=== PATIENT | male | born 1955 | race African-American/Black ===

== ENCOUNTER 2023-12-09 06:30 | Emergency (ER) | payer MEDICARE, MEDICAID ==
[~2023-12-09] VITALS: Ht 172.7 cm; Wt 73.0 kg
[2023-12-09 06:45] VITALS: BP 0/0; PULSE 0; RESP 14; O2SAT 100
[2023-12-09] MEDS ORDERED: CALCIUM CHLORIDE 1GM/10ML SYR IV ONE (06:46)
[2023-12-09] MEDS ORDERED: DEXTROSE 50% WATER 50ML SYRINGE IV ONE (06:49)
[2023-12-09] MEDS ORDERED: EPINEPHRINE 0.1MG/ML (1:10,000) 10ML SYR ONE (06:49)
== END 2023-12-09 08:02 ==
LOC: ER 06:55
DX: I46.9 Cardiac arrest, cause unspecified (principal)
CPT/HCPCS: 99291; 92950; 82962; J3490 ×2